=== PATIENT | female | born 1935 | race Two or more races ===

== ENCOUNTER 2016-11-22 11:43 | Emergency (ER) | payer MEDICARE, MEDICAID ==
[~2016-11-22] VITALS: Ht 152.4 cm; Wt 69.4 kg
[~2016-11-22 11:43] MED LIST: FERROUS SULFAT325 MG ORAL; FOLIC ACID1 MG ORAL; LEVOTHYROXINE100 MCG ORAL; LOSARTAN-HCTZ1 EAC1 ORAL; MAGNESIUM OXID400 M1 ORAL
[2016-11-22 12:45] VITALS: BP 193/51
[2016-11-22] MEDS ORDERED: Morphine Sulfate 2mg/ml Inj IVP ONE (12:45)
[2016-11-22 13:06] LABS: APPEARANCE,URINE CLEAR; KETONES,URINE NEGATIVE (NEGATIVE); LEUKOCYTE ESTERASE ,URINE 1+ (NEGATIVE); NITRITE,URINE NEGATIVE (NEGATIVE); PH,URINE 5 (4.5-8.0); PROTEIN,URINE 1+ (NEGATIVE); UROBILINOGEN,URINE NORMAL MG/DL (0.0-1.0)
[2016-11-22 13:07] LABS: BASOPHILS % (AUTO) 2.1 % (0.0-2.0); EOSINOPHILS % (AUTO) 2.2 % (0.0-3.0); LYMPHOCYTES % (AUTO) 34.2 % (20.0-45.0); MEAN CORPUSCULAR HEMOGLOBIN 34.3 PG (27.0-31.0); MEAN CORPUSCULAR HGB CONC 35.3 G/DL (32.0-36.0); MEAN CORPUSCULAR VOLUME 97 FL (80-99); MONOCYTES % (AUTO) 6.5 % (1.0-10.0); PLATELET COUNT 118 K/UL (150-450); RED CELL DISTRIBUTION WIDTH 10.4 % (11.6-14.8); WHITE BLOOD COUNT 6.7 K/UL (4.8-10.8)
[2016-11-22 13:15] LABS: ALANINE AMINOTRANSFERASE 12 U/L (3-33); ALBUMIN/GLOBULIN RATIO 1.7 (1.0-2.7); ASPARTATE AMINO TRANSFERASE 21 U/L (5-40); CALCIUM 9.4 mg/dL (8.6-10.2); CARBON DIOXIDE 22 mEQ/L (20-30); CREATININE 0.7 mg/dL (0.5-0.9); HEMOLYSIS 34; LIPASE 29 U/L (< 60); TOTAL PROTEIN 6.4 g/dL (6.6-8.7); TROPONIN I < 0.30 ng/mL (<=0.30)
[2016-11-22 13:16] LABS: ANION GAP 17 (5-15); CHLORIDE 93 mEQ/L (98-107); POTASSIUM 4.7 mEQ/L (3.4-4.9); SODIUM 132 mEQ/L (135-145)
[2016-11-22 13:25] LABS: BACTERIA,URINE FEW /HPF; RBC,URINE 0-2 /HPF (0 - 2); SQUAMOUS EPITHELIAL CELL,UR FEW /LPF (NONE/OCC)
[2016-11-22 14:10] LABS: INR 0.9 (0.9-1.1); PROTHROMBIN TIME 9.8 SEC (9.30-11.50)
[2016-11-22 14:23] VITALS: BP 180/45
[2016-11-22 16:00] VITALS: BP 146/69
--- NOTE | 2016-11-22 16:47 | Emergency Room Report ---
History of Present Illness General Chief Complaint: Lower Back Pain or Injury Source: Patient, Medical Record Present Illness HPI The patient presents with lower abdominal pain and flank pain. This has been going on for several months. She is worried about cancer. The pain is 10/10 and makes it difficult for her to ambulate and bend. No h/o stones. No fevers , NVD, dysuria, chest pain, extremity pain. The pain radiates from back and flank, more on R across lower abdomen. It is crampy but there is underlying pain. She had CT with atherosclerotic disease. h/o HTN. Not diabetic. Allergies: Coded Allergies: No Known Allergies (Unverified , 11/01/15) Patient History Social History: Denies: smoking Social History Narrative with friend Reviewed Nursing Documentation: PMH: Agreed, PSxH: Agreed Nursing Documentation-PMH Past Medical History: No History, Except For Hx Cardiac Problems: Yes Hx Hypertension: Yes Hx Cancer: No Hx Gastrointestinal Problems: No Hx Neurological Problems: Yes Hx Dizziness: Yes Hx Weakness: Yes Review of Systems All Other Systems: negative except mentioned in HPI Physical Exam Vital Signs Date Time Temp Pulse Resp B/P Pulse Ox O2 Delivery O2 Flow Rate FiO2 11/22/16 11:49 98.1 66 14 146/63 98 Room Air Sp02 EP Interpretation: reviewed, normal General Appearance: well appearing, no apparent distress, GCS 15, mild distress Head: normocephalic, atraumatic Eyes: bilateral eye PERRL, bilateral eye normal inspection ENT: moist mucus membranes Neck: supple Respiratory: lungs clear, normal breath sounds Cardiovascular #1: regular rate, rhythm Cardiovascular #2: 2+ radial (R) Gastrointestinal: normal inspection, normal bowel sounds, no mass, non- distended, no guarding, no rebound, tenderness - R flank and RLQ/suprapubic area Genitourinary: no CVA tenderness Musculoskeletal: back normal, gait/station normal, normal range of motion Neurologic: alert, oriented x3, grossly normal Psychiatric: anxious Skin: normal inspection, warm/dry Medical Decision Making Diagnostic Impression: Primary Impression: Flank pain Additional Impression: Abdominal pain Qualified Codes: R10.31 - Right lower quadrant pain ER Course Patient presents with lower abdominal pain which has worsened. Ddx; stone, strain, diverticulosis, ischemic bowel, mass, UTI, back DJD amongst others. Due to age and severity - urgent evaluation with labs, UA and CT with contrast. Treatment with gentle hydration and analgesia. Labs with normal WBC and minimally low h/h with normal lytes and urine. CT with atherosclerotic disease and no acute findings. Etiology of pain unclear, but resolved. Observe at home. Patient improved with treatment. Pain resolved with small dose morphine. Discussed findings with patient. The patient is stable for outpatient observation and treatment. Laboratory Tests Test 11/22/16 12:40 11/22/16 13:44 White Blood Count 6.7 K/UL (4.8-10.8) Red Blood Count 3.20 M/UL (4.20-5.40) L Hemoglobin 11.0 G/DL (12.0-16.0) L Hematocrit 31.1 % (37.0-47.0) L Mean Corpuscular Volume 97 FL (80-99) Mean Corpuscular Hemoglobin 34.3 PG (27.0-31.0) H Mean Corpuscular Hemoglobin Concent 35.3 G/DL (32.0-36.0) Red Cell Distribution Width 10.4 % (11.6-14.8) L Platelet Count 118 K/UL (150-450) L Mean Platelet Volume 10.0 FL (6.5-10.1) Neutrophils (%) (Auto) 55.0 % (45.0-75.0) Lymphocytes (%) (Auto) 34.2 % (20.0-45.0) Monocytes (%) (Auto) 6.5 % (1.0-10.0) Eosinophils (%) (Auto) 2.2 % (0.0-3.0) Basophils (%) (Auto) 2.1 % (0.0-2.0) H Urine Color Pale yellow Urine Appearance Clear Urine pH 5 (4.5-8.0) Urine Specific [place] 1.010 (1.005-1.035) Urine Protein 1+ (NEGATIVE) H Urine Glucose (UA) Negative (NEGATIVE) Urine Ketones Negative (NEGATIVE) Urine Occult Blood Negative (NEGATIVE) Urine Nitrite Negative (NEGATIVE) Urine Bilirubin Negative (NEGATIVE) Urine Urobilinogen Normal MG/DL (0.0-1.0) Urine Leukocyte Esterase 1+ (NEGATIVE) H Urine RBC 0-2 /HPF (0 - 2) Urine WBC 2-4 /HPF (0 - 2) Urine Squamous Epithelial Cells Few /LPF (NONE/OCC) Urine Bacteria Few /HPF (NONE) Sodium Level 132 mEQ/L (135-145) L Potassium Level 4.7 mEQ/L (3.4-4.9) Chloride Level 93 mEQ/L (98-107) L Carbon Dioxide Level 22 mEQ/L (20-30) Anion Gap 17 (5-15) H Blood Urea Nitrogen 11 mg/dL (7-23) Creatinine 0.7 mg/dL (0.5-0.9) Estimate Glomerular Filtration Rate mL/min (>60) Glucose Level 88 mg/dL (74-106) Calcium Level 9.4 mg/dL (8.6-10.2) Total Bilirubin 0.4 mg/dL (0.0-1.2) Aspartate Amino Transferase (AST) 21 U/L (5-40) Alanine Aminotransferase (ALT) 12 U/L (3-33) Alkaline Phosphatase 65 U/L (35-104) Troponin I < 0.30 ng/mL (<=0.30) Total Protein 6.4 g/dL (6.6-8.7) L Albumin 4.1 g/dL (3.5-5.2) Globulin 2.3 g/dL Albumin/Globulin Ratio 1.7 (1.0-2.7) Lipase 29 U/L (< 60) Prothrombin Time 9.8 SEC (9.30-11.50) Prothrombin Time INR 0.9 (0.9-1.1) PTT 25 SEC (23-33) EKG Diagnostic Results Rate: normal Rhythm: NSR ST Segments: no acute changes Rhythm Strip Diag. 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 Degree/significance uncertain. Consider CT abdominal angiography for further evaluation if there is high clinical suspicion for intestinal angina Surgically absent uterus and ovaries Other findings as noted, including degenerative spondylosis Last Vital Signs Date Time Temp Pulse Resp B/P Pulse Ox O2 Delivery O2 Flow Rate FiO2 11/22/16 18:30 98.0 66 16 144/45 98 Room Air Status: improved Disposition: HOME, SELF-CARE Condition: Improved Scripts Hydrocodone Bit/Acetaminophen 5-325* (NORCO 5-325*) 1 Each Tablet 1 TAB ORAL Q6H Y for For Pain, #6 TAB 0 Refills Prov: Fitz Wise M.D. 11/22/16 Acetaminophen (Tylenol) 325 Mg Tablet 650 MG ORAL Q6H Y for Prn Pain/Headache/Temp > 101, #30 TAB 0 Refills Prov: Fitz Wise M.D. 11/22/16 Referrals: HARMONY JOLLEY (PCP) Fitz Wise M.D. Nov 22, 2016 16:47
--- NOTE | 2016-11-22 16:47 | Diagnostic Imaging Report ---
Clinical Indication: Abdominal pain Technique: Patient given oral contrast. IV administration nonionic contrast. Venous phase spiral acquisition obtained through the abdomen and pelvis. Multiplanar reconstructions were generated. Total dose length product 84 mGycm. CTDIvol(s) is 18 mGy. 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 There is some image degradation due to respiratory motion artifact The appendix is normal; somewhat prominent in caliber but gas-filled and unchanged in appearance from the prior exam. No definite evidence of diverticulosis. No diverticulitis. Small bowel is nondistended, no wall thickening. No free or loculated intraperitoneal air or fluid. The distal esophagus, stomach, duodenum are unremarkable. The liver, gallbladder, bile ducts, pancreas, spleen, adrenals, kidneys are all unremarkable. Previously demonstrated right lower pole renal cyst is not clearly evident on the current study, probably due to a combination of the breathing artifact and earlier phase of contrast on the current study. No retroperitoneal or mesenteric mass or adenopathy. The uterus and ovaries are not visualized. No pelvic mass or adenopathy. The included lung bases are clear. 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 Degree/significance uncertain. Consider CT abdominal angiography for further evaluation if there is high clinical suspicion for intestinal angina Surgically absent uterus and ovaries Other findings as noted, including degenerative spondylosis The CT scanner at [facility] is accredited by the [employer] and the scans are performed using protocols designed to limit radiation exposure to as low as reasonably achievable to attain images of sufficient resolution adequate for diagnostic evaluation.
[2016-11-22] MEDS ORDERED: TRAMADOL HCL50 MG ORAL (17:02)
[2016-11-22] MEDS ORDERED: TYLENOL325 MG ORAL (17:15)
[2016-11-22] MEDS ORDERED: NORCO 5-325 TA1 EACH ORAL (17:15)
[2016-11-22 18:30] VITALS: BP 144/45
--- NOTE | 2016-11-24 15:11 | Cardiology Report ---
APPROVED REPORT EKG Measurement Heart [id number] Sinus bradycardia Cannot rule out Anterior infarct, age undetermined Abnormal ECG
== END 2016-11-22 18:30 | disposition home or self-care (01) ==
LOC: EMR 12:20
DX: R10.31 Right lower quadrant pain (principal); I10 Essential (primary) hypertension; K55.1 Chronic vascular disorders of intestine; Z90.710 Acquired absence of both cervix and uterus
CPT/HCPCS: 74177; 80053; 81003; 83690; 84484; 85025; 85610; 85730; 93005; 96374; 96375; 99284; J2270; J2405; Q9967